=== PATIENT | female | born 1960 | race Caucasian/White ===

== ENCOUNTER 2017-04-10 20:27 | Inpatient (IN) | payer BC, MEDICAID ==
[~2017-04-10] VITALS: Ht 167.6 cm; Wt 103.6 kg
[2017-04-10] MEDS ORDERED: HYDR-4077 PO (20:40)
[2017-04-10] MEDS ORDERED: OMEP40CA PO (20:40)
[2017-04-10] MEDS ORDERED: TRAZ300T2 PO (20:40)
[2017-04-10 21:04] LABS: *BILIRUBIN,URIN NEGATIVE (NEGATIVE); *BLOOD, URINE 3+ (NEGATIVE); *CLARITY,URINE SLIGHTLY CLOUDY (CLEAR); *COLOR,URINE AMBER (YELLOW); *KETONES,URINE NEGATIVE (NEGATIVE); *PROTEIN,URINE 1+ (NEGATIVE); *UROBILINOGEN,URINE 0.2 E.U./dl (NORMAL); LEUKOCYTE ESTERASE ,URINE 1+ (NEGATIVE); NITRITE, URINE NEGATIVE (NEGATIVE); UGLUCOSE NEGATIVE (NEGATIVE)
[2017-04-10 21:32] LABS: RBC,URINE 20-50 /HPF (0-3)
[2017-04-10 21:33] LABS: BACTERIA,URINE FEW /HPF (NONE SEEN); SQUAMOUS EPITHELIAL CELL,UR FEW /HPF (NONE SEEN)
[2017-04-10] MEDS: IV NORMAL SALINE 1000 ML BAG IV ONE ×2 (22:01→22:15)
[2017-04-10] MEDS: ONDANSETRON 4 MG/2 ML VIAL IV ONE ×2 (22:01→22:16)
[2017-04-10] MEDS: PANTOPRAZOLE SODIUM 40 MG VIAL IV ONE ×2 (22:02→22:15)
[2017-04-10 22:18] LABS: BASOPHILS # (AUTO) 0.1 K/uL (0.0-8.0); BASOPHILS % (AUTO) 0.8 % (0.0-2.0); EOSINOPHILS # (AUTO) 0.2 K/uL (0.0-0.7); EOSINOPHILS % (AUTO) 2.1 % (0.0-7.0); HEMATOCRIT 38.4 % (37-47); HEMOGLOBIN 12.8 G/DL (12.0-16.0); LYMPHOCYTES # (AUTO) 2.8 K/UL (0.8-4.8); LYMPHOCYTES % (AUTO) 35.2 % (20.5-51.5); MEAN CORPUSCULAR HEMOGLOBIN 29.4 UUG (27.0-31.0); MEAN CORPUSCULAR HGB CONC 33 g/dL (32.0-37.0); MONOCYTES # (AUTO) 0.6 K/UL (0.1-1.30); NEUTROPHILS # (AUTO) 4.2 K/UL (1.8-8.9); NEUTROPHILS % (AUTO) 54.9 % (38.5-71.5); PLATELET COUNT (AUTO) 308 K/UL (150-450); RED BLOOD CELL COUNT(AUTO) 4.36 MIL/UL (4.2-5.4); WHITE BLOOD COUNT (AUTO) 7.9 K/UL (4.0-11.2)
[2017-04-10] MEDS ORDERED: PANTOPRAZOLE SODIUM 40 MG VIAL ONE (22:27)
[2017-04-10] MEDS ORDERED: ONDANSETRON 4 MG/2 ML VIAL ONE (22:27)
[2017-04-10 22:29] LABS: CREATININE 0.7 mg/dL (0.6-1.3); POTASSIUM 3.2 mmol/L (3.5-5.1)
[2017-04-10] MEDS ORDERED: MORPHINE SULFATE 4 MG/1 ML DISP.SYRIN IV ONE (22:30)
[2017-04-10 22:41] LABS: BILIRUBIN,DIRECT 0.1 mg/dL (0.0-0.2); BILIRUBIN,TOTAL 0.4 mg/dL (0.2-1.0)
[2017-04-10] MEDS ORDERED: MORPHINE SULFATE 4 MG/1 ML DISP.SYRIN ONE (23:00)
[2017-04-11] MEDS ORDERED: ONDANSETRON 4 MG/2 ML VIAL IV ONE
[2017-04-11] MEDS ORDERED: MORPHINE SULFATE 4 MG/1 ML DISP.SYRIN IV ONE
[2017-04-11] MEDS ORDERED: ONDANSETRON 4 MG/2 ML VIAL ONE (00:21)
[2017-04-11] MEDS ORDERED: MORPHINE SULFATE 4 MG/1 ML DISP.SYRIN ONE (00:21)
[2017-04-11] MEDS ORDERED: HYDROMORPHONE 1 MG/1 ML DISP.SYRIN IV ONE (00:30)
[2017-04-11] MEDS ORDERED: HYDROMORPHONE 2 MG/1 ML DISP.SYRIN ONE (00:46)
[2017-04-11] MEDS ORDERED: IOHEXOL 350 100 ML INFUS..BTL ONE (00:51)
[2017-04-11] MEDS ORDERED: IV NORMAL SALINE 250 ML IV ONE (00:51)
[2017-04-11] MEDS ORDERED: FUROSEMIDE 20 MG/2 ML VIAL IV ONE (02:00)
--- NOTE | 2017-04-11 02:16 | NUR ---
Pt. admitted to TELE, under care of Dr. Del Angel Belongs List completed
[2017-04-11] MEDS ORDERED: FUROSEMIDE 40 MG/4 ML VIAL ONE (02:24)
--- NOTE | 2017-04-11 02:25 | NUR ---
PT RECEIVED FROM ED VIA [employer]. A/OX4. ABLE TO MAKE NEEDS KNOWN. V/S STABLE. IN NO ACUTE DISTRESS. C/O OF GENERALIZED PAIN 04/10. NO C/O CHEST PAIN AT THIS TIME IV INTACT PATENT. O2 2L WITH NASAL CANNULA. ORIENTED TO ROOM. SAFETY MEASURES IMPLEMENTED. CALL LIGHT WITHIN REACH.
[2017-04-11 02:30] VITALS: BP 119/90
[2017-04-11] MEDS ORDERED: ACETAMINOPHEN 325 MG TABLET PO PRN (03:00)
[2017-04-11] MEDS ORDERED: ZOLPIDEM 5 MG TABLET PO PRN (03:00)
[2017-04-11] MEDS ORDERED: Z GUARD REMEDY PASTE 57 GM TUBE TOP PRN (03:00)
[2017-04-11] MEDS ORDERED: POTASSIUM CHLORIDE 20 MEQ TAB.PRT.SR PO ONE (03:00)
[2017-04-11] MEDS ORDERED: POTASSIUM CHLORIDE 20 MEQ TAB.PRT.SR ONE (03:38)
[2017-04-11] MEDS ORDERED: IPRATROPIUM BROMIDE 0.5 MG/2.5 ML NEBU ONE (03:39)
[2017-04-11] MEDS ORDERED: ALBUTEROL SULFATE 1.25 MG/3 ML NEBU ONE (03:40)
[2017-04-11] MEDS: IPRATROPIUM BROMIDE 0.5 MG/2.5 ML NEBU NEB PRN (03:45)
[2017-04-11] MEDS: ALBUTEROL SULFATE 1.25 MG/3 ML NEBU NEB PRN (03:45)
[2017-04-11 04:00] VITALS: BP 141/70
[2017-04-11] MEDS ORDERED: CEFTRIAXONE 1 G in IV DEXTROSE 5% 50 ML IV SCH (04:00)
[2017-04-11] MEDS: MORPHINE SULFATE 2 MG/1 ML DISP.SYRIN IM PRN ×3 (04:01→14:00)
[2017-04-11] MEDS ORDERED: MORPHINE SULFATE 2 MG/1 ML DISP.SYRIN ONE (04:07)
[2017-04-11] MEDS ORDERED: diphenhydrAMINE 50 MG/1 ML VIAL ONE (04:08)
[2017-04-11] MEDS ORDERED: CEFTRIAXONE 1 G VIAL ONE (04:18)
[2017-04-11] MEDS: diphenhydrAMINE 50 MG CAPSULE PO PRN ×3 (04:21→22:36)
[2017-04-11] MEDS ORDERED: diphenhydrAMINE 50 MG CAPSULE ONE (04:31)
--- NOTE | 2017-04-11 07:00 | NUR ---
END OF SHIFT NOTES. PT SLEPT INTERMITTENTLY. IN STABLE CONDITION. IV ABX INFUSED. 68 SINUS ON THE TELE MONITOR. ON 2L NC. HOB ELEVATED. NO C/O SOB. PAIN MANAGED. ITCHING CONTROLLED WITH BENADRYL. NO C/O CHEST PAIN THROUGHOUT SHIFT.
--- NOTE | 2017-04-11 08:00 | NUR ---
Discussed plan of care with pt re: fall precaution, pain mangement, s/s of IV infiltration, Pt agreeable with plan of care. Call light is within reach.
[2017-04-11] MEDS: ONDANSETRON 4 MG/2 ML VIAL IV PRN ×2 (11:01→23:25)
[2017-04-11] MEDS: CLONAZEPAM 0.5 MG TABLET PO PRN ×2 (13:59→21:48)
[2017-04-11] MEDS ORDERED: LORAZEPAM 1 MG TABLET PO PRN (17:00)
--- NOTE | 2017-04-11 18:30 | NUR ---
Plan of care effective. Call light is within reach.
--- NOTE | 2017-04-11 19:50 | NUR ---
PT RECEIVED IN BED, AWAKE. A/OX4. ABLE TO MAKE NEEDS KNOWN. V/S STABLE. IN NO ACUTE DISTRESS. C/O OF ABDOMINAL PAIN 01/08. WILL ADMIN PAIN MEDS ORDERED. IV INTACT/PATENT. ON 2L NC. NO C/O SOB. SAFETY MEASURES IMPLEMENTED. CALL LIGHT WITHIN REACH.
[2017-04-11 20:00] VITALS: BP 142/66
[2017-04-11] MEDS: hydrALAZINE HCL 50 MG TABLET PO SCH (21:38)
[2017-04-11] MEDS: TRAZODONE 100 MG TABLET PO SCH (21:38)
[2017-04-11] MEDS: CEFTRIAXONE 1 G in IV DEXTROSE 5% 50 ML IV SCH (21:38)
[2017-04-11] MEDS: HYDROCORTISONE 1% OINT 28.35 GM TUBE TOP SCH (21:42)
[2017-04-11] MEDS: MAGNESIUM HYDROXIDE 30 ML LIQUID UDC PO PRN (21:48)
[2017-04-11] MEDS: MORPHINE SULFATE 2 MG/1 ML DISP.SYRIN IV PRN (22:37)
[2017-04-12] MEDS: HYDROCODONE/APAP 5-325MG TABLET PO PRN ×3 (01:53→19:43)
[2017-04-12 05:27] VITALS: BP 115/55
--- NOTE | 2017-04-12 06:30 | NUR ---
END OF SHIFT NOTES. PT SLEPT INTERMITTENTLY THROUGHOUT SHIFT. IN STABLE CONDITION. PAIN MANAGED. PT C/O OF ANXIOUSNESS AND UNABLE TO SLEEP. ADMIN PRN ANXIETY MEDS ORDERED. RELIEF OF PAIN AND ANXIETY STATED BY PT. ALL NEEDS ATTENDED. SAFETY MEASURES MAINTAINED. CALL LIGHT WITHIN REACH
[2017-04-12 07:44] LABS: BILIRUBIN,TOTAL 0.3 mg/dL (0.2-1.0); CREATININE 0.7 mg/dL (0.6-1.3); MAGNESIUM 1.9 mg/dL (1.8-2.4); PHOSPHOROUS 4.2 mg/dL (2.5-4.9); POTASSIUM 3.6 mmol/L (3.5-5.1)
--- NOTE | 2017-04-12 07:45 | NUR ---
Received patient asleep with O2 at 2lpm. Not in apparent distress, non-labored breathing. Call light within reach.
[2017-04-12 07:47] LABS: BASOPHILS % (AUTO) 0.3 % (0.0-2.0); EOSINOPHILS # (AUTO) 0.2 K/uL (0.0-0.7); EOSINOPHILS % (AUTO) 3.2 % (0.0-7.0); HEMATOCRIT 35.1 % (31.2-41.9); LYMPHOCYTES # (AUTO) 2.7 K/uL (20.0-40.0); MEAN CORPUSCULAR HEMOGLOBIN 30.3 uug (24.7-32.8); MEAN CORPUSCULAR HGB CONC 34 g/dL (32.3-35.6); MEAN CORPUSCULAR VOLUME 88.7 fL (75.5-95.3); MONOCYTES # (AUTO) 0.5 K/uL (2.0-10.0); NEUTROPHILS # (AUTO) 3.8 K/uL (1.8-8.9); NEUTROPHILS % (AUTO) 52.5 % (38.5-71.5); PLATELET COUNT (AUTO) 293 K/uL (179-408); RED BLOOD CELL COUNT(AUTO) 3.96 MIL/uL (3.63-4.92); WHITE BLOOD COUNT (AUTO) 7.2 K/uL (3.8-11.8)
--- NOTE | 2017-04-12 10:10 | NUR ---
Patient awake, eating breakfast. No complaints of pain or discomfort. No complaints of SOB or chest pains at the moment. Call light within reach.
[2017-04-12 11:10] VITALS: BP 120/67
--- NOTE | 2017-04-12 13:00 | NUR ---
Patient complained of abdominal pain and dysuria. No SOB noted. Patient also claimed to be nauseated no vomiting. PRN [place] and Zofran given.
[2017-04-12] MEDS: ONDANSETRON 4 MG/2 ML VIAL IV PRN ×2 (13:12→19:43)
[2017-04-12 15:16] VITALS: BP 115/56
[2017-04-12] MEDS: MORPHINE SULFATE 2 MG/1 ML DISP.SYRIN IV PRN (16:39)
--- NOTE | 2017-04-12 16:40 | NUR ---
pain over back and bladder area rated as 10/10. PRN Morphine given
--- NOTE | 2017-04-12 19:30 | NUR ---
Pt alert awake in room c/o nausea with some abdominal and lower extremity pain 10/10. Zofran and [place] available at this time. Call light placed within reach, lights dimmed, and HOB elevated 15 degrees. Continue to monitor.
--- NOTE | 2017-04-12 19:40 | NUR ---
End of shift notes: Patient awake, alert x4. Still with pain over abdomen. Call light within reach. Not in apparent distress still on O2 at 2lpm
[2017-04-12 20:00] VITALS: BP 122/64
[2017-04-12] MEDS: hydrALAZINE HCL 50 MG TABLET PO SCH (21:21)
[2017-04-12] MEDS: TRAZODONE 100 MG TABLET PO SCH (21:21)
[2017-04-12] MEDS: diphenhydrAMINE 50 MG CAPSULE PO PRN (21:21)
[2017-04-12] MEDS: CEFTRIAXONE 1 G in IV DEXTROSE 5% 50 ML IV SCH (21:24)
[2017-04-12] MEDS: IPRATROPIUM BROMIDE 0.5 MG/2.5 ML NEBU NEB PRN (22:38)
[2017-04-12] MEDS: ALBUTEROL SULFATE 1.25 MG/3 ML NEBU NEB PRN (22:38)
[2017-04-13] MEDS: MORPHINE SULFATE 2 MG/1 ML DISP.SYRIN IV PRN ×2 (00:48→09:14)
[2017-04-13] MEDS: MAGNESIUM HYDROXIDE 30 ML LIQUID UDC PO PRN (00:56)
--- NOTE | 2017-04-13 01:00 | NUR ---
Pt asleep at this time. Pain medication effective. Pt also received milk of mag for constipation. Continue to monitor. Call light placed within reach.
[2017-04-13 04:57] VITALS: BP 117/60
[2017-04-13] MEDS: HYDROCODONE/APAP 5-325MG TABLET PO PRN ×2 (05:15→11:45)
--- NOTE | 2017-04-13 07:30 | NUR ---
Pt awake alert in room. No n/v noted. Requesting pain medication at this time. PT to eval thir morning. Oxygen 2L/min via n/c. Continue to monitor.
[2017-04-13] MEDS: HYDROCORTISONE 1% OINT 28.35 GM TUBE TOP SCH (08:14)
[2017-04-13] MEDS: ALBUTEROL SULFATE 1.25 MG/3 ML NEBU NEB PRN (11:18)
[2017-04-13 11:20] VITALS: BP 105/80
--- NOTE | 2017-04-13 14:15 | NUR ---
RECEIVED PT REPORT AT 1300, GAVE REPORT TO TO THE AM NURSE. NO CHANGES NOTED. NO S/S OF RESPIRATORY DISTRESS NOTE. NO PAIN NOTED. ALL SAFETY NEEDS ARE MET.
[2017-04-13 15:06] VITALS: BP 107/67
[2017-04-13] MEDS ORDERED: TRAZ-147 PO (18:15)
[2017-04-13] MEDS ORDERED: HYDR-3326 PO (18:15)
[2017-04-13] MEDS ORDERED: ALBU8.5H8 INH (18:15)
[2017-04-13] MEDS ORDERED: LEVO500T2 PO (18:15)
[2017-04-13 20:00] VITALS: BP 145/74
--- NOTE | 2017-04-13 21:03 | NUR ---
PATIENT DISCHARGED HOME BY [facility]. ALL DISCHARGE DOCUMENTS/TEACHING/EDUCATION/PRESCRIPTIONS COMPLETED, EXPLAINED, GIVEN TO PATIENT. PATIENT UNDERSTOOD ALL INSTRUCTIONS AND TEACHING. PATIENT IN STABLE CONDITION. NO SIGNS/SYMPTOMS OF DISTRESS. NO FALLS NOTED. PATIENT SAFELY TRANSFERRED DOWN TO [facility] BY WHEEL [facility]AIR AND SAFELY WENT INTO THE [facility].
== END 2017-04-13 21:10 | disposition home health service (06) | DRG 391 ==
LOC: ER 20:27 → TELE 04-11 02:15 → MED 04-11 20:00
PROVIDERS: ADMIT Nurse Practitioner Acute Care; ATTEND Internal Medicine
DX: A08.4 Viral intestinal infection, unspecified (principal); I50.31 Acute diastolic (congestive) heart failure; E44.1 Mild protein-calorie malnutrition; E66.01 Morbid (severe) obesity due to excess calories; N39.0 Urinary tract infection, site not specified; K51.90 Ulcerative colitis, unspecified, without complications; K76.0 Fatty (change of) liver, not elsewhere classified; I11.0 Hypertensive heart disease with heart failure; Z68.36 Body mass index [BMI] 36.0-36.9, adult; Z71.3 Dietary counseling and surveillance; J45.909 Unspecified asthma, uncomplicated; Z96.0 Presence of urogenital implants; Z98.84 Bariatric surgery status; Z90.49 Acquired absence of other specified parts of digestive tract; E87.6 Hypokalemia; F41.0 Panic disorder [episodic paroxysmal anxiety]; G47.33 Obstructive sleep apnea (adult) (pediatric); L40.9 Psoriasis, unspecified; Z87.440 Personal history of urinary (tract) infections; K21.9 Gastro-esophageal reflux disease without esophagitis
CPT/HCPCS: 36415; 70030-TC; 71010; 71275; 82306; 83605; 83735; 84100; 85025; 85730; 87040; 87086; 93005; 93307; 94640; 94664; A4663; C9113; J0696; J1170; J1200; J1940; J2270; J2405; J3590; J7030; J7040; J7050; J7060; Q0163; Q9967